=== PATIENT | male | born 1975 | race Caucasian/White ===

== ENCOUNTER 2022-03-27 21:16 | Inpatient (IN) | payer MEDICAID ==
[~2022-03-27] VITALS: Ht 167.6 cm; Wt 81.7 kg
[2022-03-27 21:00] VITALS: BP 158/78
[2022-03-28] MEDS ORDERED: CLONIDINE 0.1MG TABLET PO PRN (00:45)
[2022-03-28 01:00] VITALS: BP 132/79
[2022-03-28] MEDS ORDERED: NALOXONE HCL 0.4 MG/ML 1ML VIAL IV PRN (01:00)
[2022-03-28] MEDS: ACETAMINOPHEN 325MG TABLET PO PRN ×3 (01:07→22:00)
[2022-03-28] MEDS ORDERED: ACETAMINOPHEN 325MG TABLET PO PRN ×2 (02:15)
[2022-03-28] MEDS ORDERED: ONDANSETRON HCL 4MG/2ML INJ IV PRN (02:15)
[2022-03-28 04:00] VITALS: BP 140/68
[2022-03-28] MEDS: SODIUM CHLORIDE 0.9% INJ 3ML FLUSH IVF SCH ×2 (06:00→21:57)
[2022-03-28 08:00] VITALS: BP 124/79
[2022-03-28 12:00] VITALS: BP 126/77
[2022-03-28 16:00] VITALS: BP 133/86
[2022-03-28 20:00] VITALS: BP 107/68
[2022-03-29] VITALS: BP 118/73
[2022-03-29 04:00] VITALS: BP 106/70
[2022-03-29] MEDS: SODIUM CHLORIDE 0.9% INJ 3ML FLUSH IVF SCH ×2 (05:02→22:42)
[2022-03-29] MEDS: ACETAMINOPHEN 325MG TABLET PO PRN ×2 (05:05→22:15)
[2022-03-29 07:57] LABS: BASOPHILS % 0.7 % (0.0-2.0); EOSINOPHILS % 2.9 % (0.0-5.0); HEMATOCRIT. 45.5 % (42.0-52.0); HEMOGLOBIN. 15.7 g/dL (14.0-18.0); LYMPHOCYTES % 40.7 % (20.0-50.0); MEAN CORPUSCULAR HEMOGLOBIN 28.6 pg (28.0-32.0); MEAN CORPUSCULAR VOLUME 82.9 fL (80.0-94.0); MEAN PLATELET VOLUME 6.8 fl (7.4-10.4); MONOCYTES % 8.4 % (2.0-8.0); NEUTROPHILS % 47.3 % (40.0-76.0); PLATELET 361 x1000/uL (130-400); RED BLOOD CELL COUNT 5.49 mill/uL (4.7-6.1); RED CELL DISTRIBUTION WIDTH 13.9 % (11.6-14.6)
[2022-03-29 08:00] VITALS: BP 120/78
[2022-03-29 08:12] LABS: CHLORIDE 104 mEq/L (98-107)
[2022-03-29] MEDS ORDERED: IODIXANOL 320MG/ML 100 ML BOTTLE IV ONE (09:52)
[2022-03-29] MEDS ORDERED: LIDOCAINE HCL/PF 1% 10 MG/ML 5ML VIAL ONE (09:54)
[2022-03-29] MEDS ORDERED: VERAPAMIL HCL 2.5 MG/1 ML 2ML VIAL IV ONE (09:56)
[2022-03-29] MEDS ORDERED: MIDAZOLAM HCL 2 MG/2 ML VIAL ONE (10:20)
[2022-03-29] MEDS ORDERED: FENTANYL CITRATE/PF 50MCG/ML 2ML VIAL ONE (10:20)
[2022-03-29] MEDS ORDERED: DIPHENHYDRAMINE 50MG/ML VIAL ONE (10:21)
[2022-03-29] MEDS ORDERED: HEPARIN 1000 UNITS/ML 10ML ONE (10:34)
[2022-03-29] MEDS ORDERED: ATROPINE SULFATE 1MG/10ML SYR IV PRN (12:00)
[2022-03-29 18:30] VITALS: BP 150/91
[2022-03-29 19:43] LABS: PARTIAL THROMBOPLASTIN TIME 28.6 sec (23.4-31.0); PROTHROMBIN TIME 10.5 sec (9.6-11.0)
[2022-03-29 20:00] VITALS: BP 143/97
[2022-03-29] MEDS ORDERED: HEPARIN 5000 UNITS/ML VIAL IV SCH (20:00)
[2022-03-29] MEDS ORDERED: HEPARIN 25,000 UNITS PREMIX 250 ML IV PRN (20:30)
[2022-03-29] MEDS: ALLOPURINOL 300 MG TABLET PO SCH (20:59)
[2022-03-29] MEDS ORDERED: CHLORHEXIDINE GLUCONATE 4% EXTERNAL USE TOP SCH (21:00)
[2022-03-29] MEDS ORDERED: BISACODYL 10MG SUPP PR PRN (21:00)
[2022-03-29] MEDS: CHLORHEXIDINE GLUCONATE 4% EXTERNAL USE TOP SCH (21:00)
[2022-03-29] MEDS ORDERED: DOCUSATE SODIUM 100MG CAPSULE PO SCH (21:00)
[2022-03-29] MEDS ORDERED: ASCORBIC ACID 500 MG TABLET PO SCH (21:00)
[2022-03-29] MEDS ORDERED: DIPHENHYDRAMINE 25MG CAPSULE PO PRN (21:00)
[2022-03-29 22:00] VITALS: BP 136/82
[2022-03-30] VITALS (55 sets, daily range): BP systolic 83–151; BP diastolic 37–96
[2022-03-30] MEDS ORDERED: HEPARIN 5000 UNITS/ML VIAL IV PRN ×2 (02:00)
[2022-03-30 03:22] LABS: BASOPHILS % 0.7 % (0.0-2.0); EOSINOPHILS % 2.3 % (0.0-5.0); HEMATOCRIT. 45.2 % (42.0-52.0); HEMOGLOBIN. 15.2 g/dL (14.0-18.0); LYMPHOCYTES % 38.1 % (20.0-50.0); MEAN CORPUSCULAR HEMOGLOBIN 28.1 pg (28.0-32.0); MEAN CORPUSCULAR VOLUME 83.5 fL (80.0-94.0); MEAN PLATELET VOLUME 6.9 fl (7.4-10.4); MONOCYTES % 7.7 % (2.0-8.0); NEUTROPHILS % 51.2 % (40.0-76.0); PLATELET 361 x1000/uL (130-400); RED BLOOD CELL COUNT 5.42 mill/uL (4.7-6.1)
[2022-03-30] MEDS ORDERED: DEL NIDO ELECTROLYTE-S(PH 7.4) 1,000 ML IV NR ×2 (04:00)
[2022-03-30] MEDS ORDERED: INSULIN REGULAR (DRIP) 100 UNITS in SODIUM CHLORIDE 0.9% 99 ML IV NR (04:00)
[2022-03-30] MEDS ORDERED: BLOOD SUGAR DIAGNOSTIC STRIP TEST SCH (04:00)
[2022-03-30] MEDS ORDERED: NOREPINEPHRINE 8 MG in DEXT 5% WATER 242 ML IV NR (04:00)
[2022-03-30] MEDS ORDERED: PAPAVERINE HCL 180MG in SODIUM CHLORIDE 0.9% 24ML IV NR ×2 (04:00→09:00)
[2022-03-30] MEDS ORDERED: EPINEPHRINE 5 MG in DEXT 5% WATER 245 ML IV NR (04:00)
[2022-03-30] MEDS ORDERED: DOPAMINE HCL 400 MG in DEXT 5% WATER 240 ML IV NR (04:00)
[2022-03-30] MEDS ORDERED: CEFAZOLIN 2,000 MG in DEXT 5% WATER 100 ML IV NR (04:00)
[2022-03-30 04:22] LABS: CHLORIDE 106 mEq/L (98-107)
[2022-03-30] MEDS: ALLOPURINOL 300 MG TABLET PO SCH (05:37)
[2022-03-30] MEDS: CHLORHEXIDINE GLUCONATE 4% EXTERNAL USE TOP SCH (05:38)
[2022-03-30] MEDS ORDERED: CEFAZOLIN 2,000 MG in DEXT 5% WATER 100 ML IV SCH (06:00)
[2022-03-30] MEDS ORDERED: POLYMYXIN B SULFATE 500000 UNITS/VIAL ONE (06:04)
[2022-03-30] MEDS ORDERED: THROMBIN (BOVINE) 5000 UNITS/VIAL TOP ONE ×2 (06:04→09:20)
[2022-03-30] MEDS ORDERED: SKIN ADHESIVE 0.7 GM EA TOP ONE (06:05)
[2022-03-30] MEDS ORDERED: NICARDIPINE 40MG/200ML PREMIX 200 ML IV ONE (06:18)
[2022-03-30] MEDS ORDERED: HEPARIN 1000 UNITS/ML 10ML ONE ×3 (06:18→09:41)
[2022-03-30] MEDS: SODIUM CHLORIDE 0.9% INJ 3ML FLUSH IVF SCH ×3 (06:39→22:00)
[2022-03-30] MEDS ORDERED: ROCURONIUM BROMIDE 10MG/ML VIAL 5ML IV ONE ×3 (07:27→11:14)
[2022-03-30] MEDS ORDERED: FENTANYL CITRATE/PF 50MCG/ML 2ML VIAL ONE ×2 (07:32→12:06)
[2022-03-30] MEDS ORDERED: PROPOFOL 10MG/ML 100ML 100 ML IV ONE (08:00)
[2022-03-30] MEDS ORDERED: GLYCOPYRROLATE 0.2 MG/ML 2ML VIAL ONE ×2 (08:51→11:55)
[2022-03-30] MEDS ORDERED: METOPROLOL TARTRATE 5MG/5ML VIAL IV ONE (08:52)
[2022-03-30] MEDS ORDERED: DEXAMETHASONE 4MG/ML 1ML VIAL ONE (08:52)
[2022-03-30] MEDS ORDERED: FUROSEMIDE 100MG/10ML VIAL ONE (08:52)
[2022-03-30] MEDS: ASPIRIN 81MG TABLET PO SCH (09:00)
[2022-03-30] MEDS ORDERED: CALCIUM CHLORIDE 1GM/10ML SYR IV ONE (09:16)
[2022-03-30] MEDS ORDERED: MAGNESIUM 1 G PREMIX 100 ML IV PRN ×2 (09:30→12:00)
[2022-03-30] MEDS ORDERED: MAGNESIUM 2 G PREMIX 50 ML IV PRN ×2 (09:30→12:00)
[2022-03-30] MEDS ORDERED: KCL 10MEQ/50ML PREMIX 150 ML IV PRN (09:30)
[2022-03-30] MEDS ORDERED: MAGNESIUM SULFATE 3 GM in DEXT 5% WATER 100 ML IV PRN ×2 (09:30→12:00)
[2022-03-30] MEDS ORDERED: KCL 10MEQ/50ML PREMIX 200 ML IV PRN (09:30)
[2022-03-30] MEDS ORDERED: SODIUM BICARBONATE 8.4% 1 MEQ/ML 50ML SYR IV ONE (09:36)
[2022-03-30] MEDS ORDERED: AMINOCAPROIC ACID 250 MG/ML 20ML VIAL ONE (10:48)
[2022-03-30] MEDS ORDERED: MILRINONE 20MG-DEXT 5% PREMIX 100 ML IV ONE (10:49)
[2022-03-30] MEDS ORDERED: KETOROLAC 30MG/ML VIAL ONE (11:18)
[2022-03-30] MEDS ORDERED: AMIODARONE HCL 50MG/ML 3ML VIAL IV ONE (11:18)
[2022-03-30] MEDS ORDERED: AMIODARONE HCL 900 MG in DEXT 5% WATER 500 ML IV PRN (11:30)
[2022-03-30] MEDS ORDERED: SEVOFLURANE 250 ML LIQUID INH ONE (11:31)
[2022-03-30] MEDS ORDERED: NEOSTIGMINE METHYLSULFATE 1MG/ML 10 ML VIAL ONE (11:34)
[2022-03-30] MEDS ORDERED: DOPAMINE HCL 400 MG in DEXT 5% WATER 240 ML IV SCH (12:00)
[2022-03-30] MEDS ORDERED: ACETAMINOPHEN 325MG TABLET PO PRN (12:00)
[2022-03-30] MEDS ORDERED: CALCIUM CHLORIDE 3,000 MG in DEXT 5% WATER 250 ML IV PRN (12:00)
[2022-03-30] MEDS ORDERED: ALBUMIN HUMAN 12.5G/250ML (5%) IV PRN (12:00)
[2022-03-30] MEDS ORDERED: SODIUM CHLORIDE 0.9% 500 ML IV PRN (12:00)
[2022-03-30] MEDS ORDERED: ALBUMIN HUMAN 25GM/100ML (25%) IV PRN (12:00)
[2022-03-30] MEDS ORDERED: ALBUTEROL 6.7GM HFA INHALER ONE (12:11)
[2022-03-30 12:29] LABS: BG CARBOXYHEMOGLOBIN 0.3 % (0.5-1.5); BG DEOXYHEMOGLOBIN 6.4 % (0.0-5.0); BG FRACTION INSPIRED OXYGEN 100; BG HCO3 ACT 19.5 mmol/L (22.0-26.0); BG METHEMOGLOBIN 0.2 % (0.0-1.5); BG OXYGEN SATURATION 93.6 % (92.0-98.5); BG OXYHEMOGLOBIN 93.1 % (94.0-97.0); BG PCO2 48.2 mmHg (35.0-45.0); BG PH 7.224 (7.350-7.450); BG PO2 79.4 mmHg (75.0-100.0); BG SAMPLE SITE ALINE; BG TOTAL HEMOGLOBIN 11.5 g/dL (12.0-18.0); BG VENT MODE MASK - NRB
[2022-03-30] MEDS: MAGNESIUM HYDROXIDE 400MG/5ML 30ML UDC PO SCH ×3 (12:30→20:21)
[2022-03-30 12:33] LABS: BASOPHILS % 0.1 % (0.0-2.0); EOSINOPHILS % 0.1 % (0.0-5.0); HEMATOCRIT. 32.1 % (42.0-52.0); HEMOGLOBIN. 10.6 g/dL (14.0-18.0); LYMPHOCYTES % 16.6 % (20.0-50.0); MEAN CORPUSCULAR VOLUME 84.6 fL (80.0-94.0); MEAN PLATELET VOLUME 6.6 fl (7.4-10.4); MONOCYTES % 5.4 % (2.0-8.0); NEUTROPHILS % 77.8 % (40.0-76.0); PLATELET 293 x1000/uL (130-400); RED CELL DISTRIBUTION WIDTH 13.9 % (11.6-14.6)
[2022-03-30 12:45] LABS: CHLORIDE 105 mEq/L (98-107)
[2022-03-30] MEDS ORDERED: SODIUM BICARBONATE 8.4% 1 MEQ/ML 50ML SYR IV NR (12:45)
[2022-03-30] MEDS: MORPHINE SULFATE 2 MG/ML CPJ (NOT FOR IM USE) IV PRN ×2 (12:49→16:58)
[2022-03-30] MEDS ORDERED: FAMOTIDINE 20MG/2ML VIAL IV SCH (13:00)
[2022-03-30] MEDS: INSULIN REGULAR 100U/100ML PMX 100 ML IV SCH ×2 (13:04→21:31)
[2022-03-30] MEDS: BLOOD SUGAR DIAGNOSTIC STRIP TEST SCH ×11 (13:04→23:00)
[2022-03-30] MEDS: CEFAZOLIN 1000MG PREMIX 50 ML IV SCH ×2 (13:36→21:11)
[2022-03-30] MEDS ORDERED: DEXT 5%/0.45% NACL 1000ML 1,000 ML IV SCH (13:45)
[2022-03-30] MEDS: KCL 10MEQ/50ML PREMIX 100 ML IV PRN ×2 (14:11→15:11)
[2022-03-30] MEDS ORDERED: ALBUMIN HUMAN 25GM/100ML (25%) IV NR (15:41)
[2022-03-30] MEDS: BACITRACIN 15GM TUBE TOP SCH (16:52)
[2022-03-30] MEDS: DOCUSATE SODIUM 100MG CAPSULE PO SCH (16:57)
[2022-03-30 17:50] LABS: HEMATOCRIT. 29.9 % (42.0-52.0); HEMOGLOBIN. 10.1 g/dL (14.0-18.0); MEAN CORPUSCULAR HEMOGLOBIN 28.3 pg (28.0-32.0); MEAN CORPUSCULAR VOLUME 83.7 fL (80.0-94.0); PLATELET 259 x1000/uL (130-400); RED BLOOD CELL COUNT 3.57 mill/uL (4.7-6.1); RED CELL DISTRIBUTION WIDTH 13.9 % (11.6-14.6)
[2022-03-30 18:04] LABS: CHLORIDE 110 mEq/L (98-107)
[2022-03-30 18:07] LABS: PHOSPHORUS 3.8 mg/dL (2.5-4.9)
[2022-03-30] MEDS: ACETAMINOPHEN 325MG TABLET PO PRN (20:53)
[2022-03-30] MEDS: ONDANSETRON HCL 4MG/2ML INJ IV PRN (21:10)
[2022-03-30] MEDS: KETOROLAC 15MG/ML VIAL IV PRN (21:35)
[2022-03-30] MEDS: IPRATROPIUM/ALBUTEROL 0.5-3(2.5)MG/3ML NEB HHN SCH (22:01)
[2022-03-30 22:25] LABS: PLATELET ESTIMATE NORMAL
[2022-03-31] VITALS (71 sets, daily range): BP systolic 1–166; BP diastolic 1–88
[2022-03-31] MEDS: IPRATROPIUM/ALBUTEROL 0.5-3(2.5)MG/3ML NEB HHN SCH ×6 (00:32→20:46)
[2022-03-31] MEDS: MAGNESIUM HYDROXIDE 400MG/5ML 30ML UDC PO SCH ×4 (00:33→13:36)
[2022-03-31] MEDS: BLOOD SUGAR DIAGNOSTIC STRIP TEST SCH ×16 (01:00→21:02)
[2022-03-31 01:07] LABS: HEMATOCRIT. 29.5 % (42.0-52.0); HEMOGLOBIN. 9.9 g/dL (14.0-18.0); MEAN CORPUSCULAR HEMOGLOBIN 28.3 pg (28.0-32.0); MEAN CORPUSCULAR VOLUME 83.9 fL (80.0-94.0); PLATELET 238 x1000/uL (130-400); RED BLOOD CELL COUNT 3.51 mill/uL (4.7-6.1); RED CELL DISTRIBUTION WIDTH 13.9 % (11.6-14.6)
[2022-03-31 01:26] LABS: PHOSPHORUS 5.9 mg/dL (2.5-4.9)
[2022-03-31 02:11] LABS: PLATELET ESTIMATE NORMAL
[2022-03-31] MEDS: KETOROLAC 15MG/ML VIAL IV PRN (04:20)
[2022-03-31 05:31] LABS: BG BASE EXCESS -1.5 mmol/L (-2.0-2.0); BG CARBOXYHEMOGLOBIN 0.3 % (0.5-1.5); BG DEOXYHEMOGLOBIN 3.4 % (0.0-5.0); BG HCO3 ACT 23.7 mmol/L (22.0-26.0); BG METHEMOGLOBIN 0.1 % (0.0-1.5); BG OXYGEN SATURATION 96.6 % (92.0-98.5); BG OXYHEMOGLOBIN 96.2 % (94.0-97.0); BG PCO2 41.9 mmHg (35.0-45.0); BG PH 7.371 (7.350-7.450); BG PO2 94.2 mmHg (75.0-100.0); BG SAMPLE SITE ALINE; BG TOTAL HEMOGLOBIN 10.4 g/dL (12.0-18.0)
[2022-03-31] MEDS: CEFAZOLIN 1000MG PREMIX 50 ML IV SCH ×2 (05:32→13:36)
[2022-03-31 05:34] LABS: BASOPHILS % 0.1 % (0.0-2.0); HEMATOCRIT. 29.2 % (42.0-52.0); HEMOGLOBIN. 9.9 g/dL (14.0-18.0); LYMPHOCYTES % 8.6 % (20.0-50.0); MEAN CORPUSCULAR HEMOGLOBIN 28.6 pg (28.0-32.0); MEAN CORPUSCULAR VOLUME 84.2 fL (80.0-94.0); MEAN PLATELET VOLUME 6.8 fl (7.4-10.4); MONOCYTES % 6.4 % (2.0-8.0); NEUTROPHILS % 84.9 % (40.0-76.0); PLATELET 226 x1000/uL (130-400); RED BLOOD CELL COUNT 3.47 mill/uL (4.7-6.1); RED CELL DISTRIBUTION WIDTH 13.8 % (11.6-14.6)
[2022-03-31] MEDS: SODIUM CHLORIDE 0.9% INJ 3ML FLUSH IVF SCH (06:36)
[2022-03-31] MEDS: MORPHINE SULFATE 2 MG/ML CPJ (NOT FOR IM USE) IV PRN ×3 (08:10→21:27)
[2022-03-31] MEDS ORDERED: FUROSEMIDE 40MG/4ML VIAL IVP NR (08:45)
[2022-03-31] MEDS: DOCUSATE SODIUM 100MG CAPSULE PO SCH ×2 (08:50→17:56)
[2022-03-31] MEDS: ONDANSETRON HCL 4MG/2ML INJ IV PRN (08:50)
[2022-03-31] MEDS: ASPIRIN 81MG TABLET PO SCH (08:50)
[2022-03-31] MEDS: FAMOTIDINE 20MG/2ML VIAL IV SCH (08:50)
[2022-03-31] MEDS: BACITRACIN 15GM TUBE TOP SCH ×2 (08:51→17:56)
[2022-03-31] MEDS: INSULIN LISPRO 100 UNITS/ML SUBCUT SCH ×3 (13:20→23:03)
[2022-03-31] MEDS ORDERED: FUROSEMIDE 100MG/10ML VIAL IVP NR (19:30)
[2022-03-31] MEDS ORDERED: FUROSEMIDE 40MG/4 ML UDC PO ONE (19:30)
[2022-03-31] MEDS: FUROSEMIDE 100 MG in SODIUM CHLORIDE 0.9% 90 ML IV SCH (20:59)
[2022-03-31] MEDS: DOBUTAMINE 250MG PREMIX 250 ML IV PRN (21:01)
[2022-04-01] VITALS (48 sets, daily range): BP systolic 90–149; BP diastolic 28–110
[2022-04-01] MEDS: IPRATROPIUM/ALBUTEROL 0.5-3(2.5)MG/3ML NEB HHN SCH ×5 (00:35→20:55)
[2022-04-01] MEDS: ALBUMIN HUMAN 25GM/100ML (25%) IV SCH ×3 (01:47→07:46)
[2022-04-01] MEDS: MORPHINE SULFATE 2 MG/ML CPJ (NOT FOR IM USE) IV PRN ×4 (04:13→17:58)
[2022-04-01 05:40] LABS: BASOPHILS % 0.1 % (0.0-2.0); HEMATOCRIT. 29.6 % (42.0-52.0); HEMOGLOBIN. 9.7 g/dL (14.0-18.0); LYMPHOCYTES % 11.3 % (20.0-50.0); MEAN CORPUSCULAR HEMOGLOBIN 28.3 pg (28.0-32.0); MEAN CORPUSCULAR VOLUME 86.6 fL (80.0-94.0); MEAN PLATELET VOLUME 7.7 fl (7.4-10.4); MONOCYTES % 5.6 % (2.0-8.0); PLATELET 197 x1000/uL (130-400); RED BLOOD CELL COUNT 3.42 mill/uL (4.7-6.1); RED CELL DISTRIBUTION WIDTH 14.4 % (11.6-14.6)
[2022-04-01] MEDS: DOBUTAMINE 250MG PREMIX 250 ML IV PRN (07:21)
[2022-04-01] MEDS: FUROSEMIDE 100 MG in SODIUM CHLORIDE 0.9% 90 ML IV SCH ×2 (07:22→17:57)
[2022-04-01] MEDS: BLOOD SUGAR DIAGNOSTIC STRIP TEST SCH ×4 (07:52→21:00)
[2022-04-01] MEDS: INSULIN LISPRO 100 UNITS/ML SUBCUT SCH ×4 (08:01→21:00)
[2022-04-01 08:55] LABS: BG BASE EXCESS 0.4 mmol/L (-2.0-2.0); BG CARBOXYHEMOGLOBIN 0.2 % (0.5-1.5); BG DEOXYHEMOGLOBIN 3.9 % (0.0-5.0); BG FRACTION INSPIRED OXYGEN 100; BG HCO3 ACT 25.4 mmol/L (22.0-26.0); BG METHEMOGLOBIN 0.6 % (0.0-1.5); BG OXYGEN SATURATION 96.1 % (92.0-98.5); BG OXYHEMOGLOBIN 95.3 % (94.0-97.0); BG PCO2 42.8 mmHg (35.0-45.0); BG PH 7.392 (7.350-7.450); BG PO2 94.1 mmHg (75.0-100.0); BG SAMPLE SITE LEFT RADIAL; BG TOTAL HEMOGLOBIN 10.1 g/dL (12.0-18.0); BG VENT MODE HIGH FLOW
[2022-04-01] MEDS: DOCUSATE SODIUM 100MG CAPSULE PO SCH ×2 (09:00→16:28)
[2022-04-01] MEDS: FAMOTIDINE 20MG/2ML VIAL IV SCH (09:14)
[2022-04-01] MEDS: BACITRACIN 15GM TUBE TOP SCH ×2 (09:14→17:45)
[2022-04-01] MEDS: ASPIRIN 81MG TABLET PO SCH (09:14)
[2022-04-01 09:33] LABS: PHOSPHORUS 4.3 mg/dL (2.5-4.9)
[2022-04-01] MEDS: CLOPIDOGREL 75MG TABLET PO SCH (09:43)
[2022-04-01] MEDS: AMIODARONE HCL 200 MG TABLET PO SCH ×2 (09:44→17:45)
[2022-04-01] MEDS ORDERED: ALBUMIN HUMAN 25GM/100ML (25%) IV ONE ×2 (11:00→14:00)
[2022-04-01] MEDS: DOCUSATE SODIUM 250MG CAPSULE PO SCH ×2 (17:00→17:38)
[2022-04-01] MEDS: DOPAMINE 800MG PREMIX (DOUBLE) 250 ML IV SCH (18:21)
[2022-04-01] MEDS ORDERED: ALBUMIN HUMAN 25GM/100ML (25%) IV NR (18:30)
[2022-04-01] MEDS: TEMAZEPAM 15MG CAPSULE PO SCH (22:34)
[2022-04-02] VITALS (46 sets, daily range): BP systolic 64–141; BP diastolic 47–89
[2022-04-02 00:01] LABS: CLARITY URINE CLOUDY (CLEAR); COLOR URINE DARK YELLOW (YELLOW); KETONES URINE TRACE (NEGATIVE); LEUKOCYTE ESTERASE URINE TRACE (NEGATIVE); NITRITE URINE NEGATIVE (NEGATIVE); OCCULT BLOOD URINE 3+ (NEGATIVE); PROTEIN URINE 2+ (NEGATIVE); SPECIFIC GRAVITY URINE 1.018 (1.005-1.030)
[2022-04-02] MEDS: IPRATROPIUM/ALBUTEROL 0.5-3(2.5)MG/3ML NEB HHN SCH ×6 (00:34→20:34)
[2022-04-02 05:30] LABS: BASOPHILS % 0.1 % (0.0-2.0); EOSINOPHILS % 0.1 % (0.0-5.0); HEMATOCRIT. 25.4 % (42.0-52.0); HEMOGLOBIN. 8.5 g/dL (14.0-18.0); LYMPHOCYTES % 14.5 % (20.0-50.0); MEAN CORPUSCULAR HEMOGLOBIN 28.8 pg (28.0-32.0); MEAN PLATELET VOLUME 8.1 fl (7.4-10.4); NEUTROPHILS % 81.3 % (40.0-76.0); PLATELET 165 x1000/uL (130-400); RED BLOOD CELL COUNT 2.96 mill/uL (4.7-6.1); RED CELL DISTRIBUTION WIDTH 14.2 % (11.6-14.6)
[2022-04-02] MEDS: BLOOD SUGAR DIAGNOSTIC STRIP TEST SCH ×4 (08:14→21:00)
[2022-04-02 09:15] LABS: BG BASE EXCESS 1.9 mmol/L (-2.0-2.0); BG CARBOXYHEMOGLOBIN 0.3 % (0.5-1.5); BG DEOXYHEMOGLOBIN 1.7 % (0.0-5.0); BG FRACTION INSPIRED OXYGEN 100; BG HCO3 ACT 26.5 mmol/L (22.0-26.0); BG METHEMOGLOBIN 0.2 % (0.0-1.5); BG OXYGEN SATURATION 98.3 % (92.0-98.5); BG OXYHEMOGLOBIN 97.8 % (94.0-97.0); BG PCO2 41.2 mmHg (35.0-45.0); BG PH 7.426 (7.350-7.450); BG PO2 131.1 mmHg (75.0-100.0); BG SAMPLE SITE RIGHT RADIAL; BG TOTAL HEMOGLOBIN 9.5 g/dL (12.0-18.0); BG TOTAL RESPIRATORY RATE 38 b/min; BG VENT MODE MASK - BIPAP
[2022-04-02] MEDS: DOCUSATE SODIUM 250MG CAPSULE PO SCH ×2 (09:39→17:00)
[2022-04-02] MEDS: AMIODARONE HCL 200 MG TABLET PO SCH ×2 (09:39→17:55)
[2022-04-02] MEDS: CLOPIDOGREL 75MG TABLET PO SCH (09:40)
[2022-04-02] MEDS: FAMOTIDINE 20MG/2ML VIAL IV SCH (09:40)
[2022-04-02] MEDS: ACETAMINOPHEN 325MG TABLET PO PRN (09:40)
[2022-04-02] MEDS: ASPIRIN 81MG TABLET PO SCH (09:40)
[2022-04-02] MEDS: INSULIN LISPRO 100 UNITS/ML SUBCUT SCH ×4 (09:41→21:00)
[2022-04-02] MEDS: BACITRACIN 15GM TUBE TOP SCH ×2 (09:42→17:56)
[2022-04-02] MEDS: ALBUMIN HUMAN 25GM/100ML (25%) IV SCH ×3 (10:43→15:22)
[2022-04-02] MEDS: FUROSEMIDE 100 MG in SODIUM CHLORIDE 0.9% 100 ML IV SCH (12:36)
[2022-04-02] MEDS ORDERED: METOLAZONE 10MG TABLET PO NR (13:00)
[2022-04-02] MEDS: DOPAMINE 800MG PREMIX (DOUBLE) 250 ML IV SCH (19:19)
[2022-04-02] MEDS: ACETYLCYSTEINE 200MG/ML 20% VIAL 4ML PO SCH (20:35)
[2022-04-03] VITALS (50 sets, daily range): BP systolic 95–131; BP diastolic 52–103
[2022-04-03] MEDS: TEMAZEPAM 15MG CAPSULE PO SCH ×2 (00:05→22:06)
[2022-04-03] MEDS: FUROSEMIDE 100 MG in SODIUM CHLORIDE 0.9% 100 ML IV SCH ×3 (00:10→22:06)
[2022-04-03] MEDS: IPRATROPIUM/ALBUTEROL 0.5-3(2.5)MG/3ML NEB HHN SCH ×6 (00:24→20:32)
[2022-04-03] MEDS: INSULIN LISPRO 100 UNITS/ML SUBCUT SCH ×4 (08:20→21:00)
[2022-04-03 08:28] LABS: BASOPHILS % 0.1 % (0.0-2.0); EOSINOPHILS % 0.8 % (0.0-5.0); HEMATOCRIT. 26.4 % (42.0-52.0); HEMOGLOBIN. 8.8 g/dL (14.0-18.0); LYMPHOCYTES % 12.6 % (20.0-50.0); MEAN CORPUSCULAR HEMOGLOBIN 28.4 pg (28.0-32.0); MEAN PLATELET VOLUME 8.2 fl (7.4-10.4); MONOCYTES % 5.2 % (2.0-8.0); NEUTROPHILS % 81.3 % (40.0-76.0); PLATELET 182 x1000/uL (130-400); RED BLOOD CELL COUNT 3.11 mill/uL (4.7-6.1); RED CELL DISTRIBUTION WIDTH 13.8 % (11.6-14.6)
[2022-04-03] MEDS: BLOOD SUGAR DIAGNOSTIC STRIP TEST SCH ×4 (08:34→21:00)
[2022-04-03] MEDS: DOCUSATE SODIUM 250MG CAPSULE PO SCH ×2 (08:42→16:16)
[2022-04-03] MEDS: AMIODARONE HCL 200 MG TABLET PO SCH ×2 (08:42→16:16)
[2022-04-03] MEDS: METOLAZONE 10MG TABLET PO SCH (08:42)
[2022-04-03] MEDS: CLOPIDOGREL 75MG TABLET PO SCH (08:42)
[2022-04-03] MEDS: FAMOTIDINE 20MG/2ML VIAL IV SCH (08:42)
[2022-04-03] MEDS: ASPIRIN 81MG TABLET PO SCH (08:42)
[2022-04-03] MEDS: KCL 10MEQ/50ML PREMIX 100 ML IV PRN (08:43)
[2022-04-03] MEDS: BACITRACIN 15GM TUBE TOP SCH ×2 (08:44→16:16)
[2022-04-04] VITALS (44 sets, daily range): BP systolic 104–137; BP diastolic 65–91
[2022-04-04] MEDS: IPRATROPIUM/ALBUTEROL 0.5-3(2.5)MG/3ML NEB HHN SCH ×6 (00:03→21:18)
[2022-04-04] MEDS: DOPAMINE 800MG PREMIX (DOUBLE) 250 ML IV SCH (02:16)
[2022-04-04 05:51] LABS: BASOPHILS % 0.2 % (0.0-2.0); EOSINOPHILS % 3.2 % (0.0-5.0); HEMATOCRIT. 29.2 % (42.0-52.0); HEMOGLOBIN. 9.9 g/dL (14.0-18.0); LYMPHOCYTES % 15.6 % (20.0-50.0); MEAN CORPUSCULAR HEMOGLOBIN 28.5 pg (28.0-32.0); MEAN CORPUSCULAR VOLUME 84.3 fL (80.0-94.0); MEAN PLATELET VOLUME 7.9 fl (7.4-10.4); PLATELET 271 x1000/uL (130-400); RED BLOOD CELL COUNT 3.46 mill/uL (4.7-6.1); RED CELL DISTRIBUTION WIDTH 14.1 % (11.6-14.6)
[2022-04-04] MEDS: BLOOD SUGAR DIAGNOSTIC STRIP TEST SCH ×4 (07:50→21:00)
[2022-04-04] MEDS: INSULIN LISPRO 100 UNITS/ML SUBCUT SCH ×4 (08:20→21:00)
[2022-04-04 08:21] LABS: BG BASE EXCESS 12.6 mmol/L (-2.0-2.0); BG CARBOXYHEMOGLOBIN 0.2 % (0.5-1.5); BG DEOXYHEMOGLOBIN 2.6 % (0.0-5.0); BG FRACTION INSPIRED OXYGEN 45; BG HCO3 ACT 37.2 mmol/L (22.0-26.0); BG METHEMOGLOBIN 0.3 % (0.0-1.5); BG OXYGEN SATURATION 97.4 % (92.0-98.5); BG OXYHEMOGLOBIN 96.9 % (94.0-97.0); BG PCO2 48.4 mmHg (35.0-45.0); BG PH 7.504 (7.350-7.450); BG PO2 92.9 mmHg (75.0-100.0); BG SAMPLE SITE RIGHT RADIAL; BG TOTAL HEMOGLOBIN 10.6 g/dL (12.0-18.0); BG VENT MODE HIGH FLOW
[2022-04-04] MEDS: ASPIRIN 81MG TABLET PO SCH (09:01)
[2022-04-04] MEDS: BACITRACIN 15GM TUBE TOP SCH ×2 (09:01→17:38)
[2022-04-04] MEDS: METOLAZONE 10MG TABLET PO SCH (09:01)
[2022-04-04] MEDS: AMIODARONE HCL 200 MG TABLET PO SCH ×2 (09:01→17:36)
[2022-04-04] MEDS: FAMOTIDINE 20MG/2ML VIAL IV SCH (09:01)
[2022-04-04] MEDS: DOCUSATE SODIUM 250MG CAPSULE PO SCH ×2 (09:01→17:00)
[2022-04-04] MEDS: CLOPIDOGREL 75MG TABLET PO SCH (09:01)
[2022-04-04] MEDS: POTASSIUM CHLORIDE 20MEQ/PACKET PO SCH ×2 (09:41→17:37)
[2022-04-04] MEDS: FUROSEMIDE 100 MG in SODIUM CHLORIDE 0.9% 100 ML IV SCH ×2 (15:01→20:39)
[2022-04-04] MEDS: TEMAZEPAM 15MG CAPSULE PO SCH (20:56)
[2022-04-05] VITALS (36 sets, daily range): BP systolic 89–145; BP diastolic 60–84
[2022-04-05] MEDS: IPRATROPIUM/ALBUTEROL 0.5-3(2.5)MG/3ML NEB HHN SCH ×6 (02:09→20:09)
[2022-04-05] MEDS ORDERED: DOPAMINE 400 MG/250 ML IV ONE (06:14)
[2022-04-05 06:29] LABS: HEMATOCRIT. 32.9 % (42.0-52.0); HEMOGLOBIN. 11.1 g/dL (14.0-18.0); MEAN CORPUSCULAR HEMOGLOBIN 28.7 pg (28.0-32.0); MEAN CORPUSCULAR VOLUME 84.5 fL (80.0-94.0); MEAN PLATELET VOLUME 7.7 fl (7.4-10.4); PLATELET 349 x1000/uL (130-400); RED BLOOD CELL COUNT 3.89 mill/uL (4.7-6.1); RED CELL DISTRIBUTION WIDTH 14.2 % (11.6-14.6)
[2022-04-05 07:28] LABS: PHOSPHORUS 6.1 mg/dL (2.5-4.9)
[2022-04-05] MEDS: FUROSEMIDE 100 MG in SODIUM CHLORIDE 0.9% 100 ML IV SCH ×2 (07:42→18:04)
[2022-04-05] MEDS: DOPAMINE 800MG PREMIX (DOUBLE) 250 ML IV SCH (07:44)
[2022-04-05] MEDS: INSULIN LISPRO 100 UNITS/ML SUBCUT SCH ×4 (08:06→21:00)
[2022-04-05] MEDS: BLOOD SUGAR DIAGNOSTIC STRIP TEST SCH ×3 (08:06→21:52)
[2022-04-05] MEDS: FAMOTIDINE 20MG/2ML VIAL IV SCH (08:40)
[2022-04-05] MEDS: POTASSIUM CHLORIDE 20MEQ/PACKET PO SCH ×2 (08:40→18:03)
[2022-04-05] MEDS: CLOPIDOGREL 75MG TABLET PO SCH (08:40)
[2022-04-05] MEDS: ASPIRIN 81MG TABLET PO SCH (08:40)
[2022-04-05] MEDS: METOLAZONE 10MG TABLET PO SCH (08:40)
[2022-04-05] MEDS: AMIODARONE HCL 200 MG TABLET PO SCH ×2 (08:40→18:03)
[2022-04-05] MEDS: DOCUSATE SODIUM 250MG CAPSULE PO SCH ×2 (08:40→18:03)
[2022-04-05] MEDS: BACITRACIN 15GM TUBE TOP SCH ×2 (08:41→17:00)
[2022-04-05 09:12] LABS: PLATELET ESTIMATE NORMAL
[2022-04-05] MEDS: ACETAMINOPHEN 325MG TABLET PO PRN (14:36)
[2022-04-05] MEDS: ONDANSETRON HCL 4MG/2ML INJ IV PRN (20:18)
[2022-04-05] MEDS: TEMAZEPAM 15MG CAPSULE PO SCH (21:58)
[2022-04-06] VITALS (12 sets, daily range): BP systolic 107–137; BP diastolic 54–91
[2022-04-06] MEDS: IPRATROPIUM/ALBUTEROL 0.5-3(2.5)MG/3ML NEB HHN SCH ×6 (00:02→20:14)
[2022-04-06] MEDS: ACETAMINOPHEN 325MG TABLET PO PRN (00:24)
[2022-04-06 06:00] LABS: HEMOGLOBIN. 11.7 g/dL (14.0-18.0); MEAN CORPUSCULAR VOLUME 83.7 fL (80.0-94.0); MEAN PLATELET VOLUME 7.5 fl (7.4-10.4); PLATELET 386 x1000/uL (130-400); RED BLOOD CELL COUNT 4.18 mill/uL (4.7-6.1); RED CELL DISTRIBUTION WIDTH 14.4 % (11.6-14.6)
[2022-04-06] MEDS: FUROSEMIDE 100 MG in SODIUM CHLORIDE 0.9% 100 ML IV SCH (06:26)
[2022-04-06] MEDS: BLOOD SUGAR DIAGNOSTIC STRIP TEST SCH ×4 (06:50→21:34)
[2022-04-06] MEDS: INSULIN LISPRO 100 UNITS/ML SUBCUT SCH ×4 (07:20→21:34)
[2022-04-06] MEDS: AMIODARONE HCL 200 MG TABLET PO SCH ×2 (08:02→17:42)
[2022-04-06] MEDS: METOLAZONE 10MG TABLET PO SCH (08:02)
[2022-04-06] MEDS: CLOPIDOGREL 75MG TABLET PO SCH (08:02)
[2022-04-06] MEDS: ASPIRIN 81MG TABLET PO SCH (08:02)
[2022-04-06] MEDS: BACITRACIN 15GM TUBE TOP SCH ×2 (08:02→17:38)
[2022-04-06] MEDS: POTASSIUM CHLORIDE 20MEQ/PACKET PO SCH (08:02)
[2022-04-06] MEDS: DOCUSATE SODIUM 250MG CAPSULE PO SCH ×2 (08:02→17:41)
[2022-04-06] MEDS: FAMOTIDINE 20MG/2ML VIAL IV SCH (08:02)
[2022-04-06] MEDS: FUROSEMIDE 40MG/4ML VIAL IVP SCH ×2 (11:30→17:41)
[2022-04-06] MEDS: POTASSIUM CHLORIDE 20MEQ TABLET SR PO SCH ×2 (11:30→17:41)
[2022-04-06 11:52] LABS: ATYPICAL LYMPHOCYTES 1; PLATELET ESTIMATE NORMAL
[2022-04-06] MEDS ORDERED: FUROSEMIDE 100 MG in SODIUM CHLORIDE 0.9% 100 ML IV SCH (16:00)
[2022-04-06] MEDS: ONDANSETRON HCL 4MG/2ML INJ IV PRN (17:48)
[2022-04-06] MEDS: ACETYLCYSTEINE 200MG/ML 20% VIAL 4ML PO SCH (20:00)
[2022-04-06] MEDS: TEMAZEPAM 15MG CAPSULE PO SCH (21:33)
[2022-04-07] VITALS (12 sets, daily range): BP systolic 97–136; BP diastolic 33–84
[2022-04-07] MEDS: IPRATROPIUM/ALBUTEROL 0.5-3(2.5)MG/3ML NEB HHN SCH ×6 (00:20→20:47)
[2022-04-07 06:12] LABS: HEMATOCRIT. 36.3 % (42.0-52.0); HEMOGLOBIN. 12.2 g/dL (14.0-18.0); MEAN CORPUSCULAR HEMOGLOBIN 28.1 pg (28.0-32.0); MEAN CORPUSCULAR VOLUME 83.6 fL (80.0-94.0); MEAN PLATELET VOLUME 7.6 fl (7.4-10.4); PLATELET 407 x1000/uL (130-400); RED BLOOD CELL COUNT 4.35 mill/uL (4.7-6.1)
[2022-04-07 06:39] LABS: PHOSPHORUS 5.9 mg/dL (2.5-4.9)
[2022-04-07] MEDS: INSULIN LISPRO 100 UNITS/ML SUBCUT SCH (07:20)
[2022-04-07] MEDS: BLOOD SUGAR DIAGNOSTIC STRIP TEST SCH (07:21)
[2022-04-07] MEDS: FUROSEMIDE 40MG/4ML VIAL IVP SCH (07:26)
[2022-04-07] MEDS: POTASSIUM CHLORIDE 20MEQ TABLET SR PO SCH (08:17)
[2022-04-07] MEDS: FAMOTIDINE 20MG/2ML VIAL IV SCH (08:17)
[2022-04-07] MEDS: AMIODARONE HCL 200 MG TABLET PO SCH ×2 (08:17→17:52)
[2022-04-07] MEDS: CLOPIDOGREL 75MG TABLET PO SCH (08:17)
[2022-04-07] MEDS: METOLAZONE 10MG TABLET PO SCH (08:17)
[2022-04-07] MEDS: ASPIRIN 81MG TABLET PO SCH (08:17)
[2022-04-07] MEDS: DOCUSATE SODIUM 250MG CAPSULE PO SCH ×2 (08:18→17:53)
[2022-04-07] MEDS: BACITRACIN 15GM TUBE TOP SCH ×2 (08:18→17:53)
[2022-04-07] MEDS ORDERED: KCL 20MEQ/100ML PREMIX 100 ML IV PRN (08:30)
[2022-04-07 12:32] LABS: PLATELET ESTIMATE SLIGHTLY INCREASED
[2022-04-08] VITALS (12 sets, daily range): BP systolic 105–147; BP diastolic 60–80
[2022-04-08] MEDS: ACETAMINOPHEN 325MG TABLET PO PRN (00:22)
[2022-04-08] MEDS: IPRATROPIUM/ALBUTEROL 0.5-3(2.5)MG/3ML NEB HHN SCH ×4 (00:38→12:00)
[2022-04-08 06:44] LABS: BASOPHILS % 0.3 % (0.0-2.0); EOSINOPHILS % 5.8 % (0.0-5.0); HEMATOCRIT. 36.4 % (42.0-52.0); HEMOGLOBIN. 12.2 g/dL (14.0-18.0); MEAN CORPUSCULAR HEMOGLOBIN 28.1 pg (28.0-32.0); MEAN CORPUSCULAR VOLUME 83.8 fL (80.0-94.0); MEAN PLATELET VOLUME 7.7 fl (7.4-10.4); MONOCYTES % 12.2 % (2.0-8.0); NEUTROPHILS % 69.7 % (40.0-76.0); PLATELET 441 x1000/uL (130-400); RED BLOOD CELL COUNT 4.35 mill/uL (4.7-6.1); RED CELL DISTRIBUTION WIDTH 14.1 % (11.6-14.6)
[2022-04-08] MEDS: ASPIRIN 81MG TABLET PO SCH (08:32)
[2022-04-08] MEDS: AMIODARONE HCL 200 MG TABLET PO SCH ×2 (08:32→17:26)
[2022-04-08] MEDS: CLOPIDOGREL 75MG TABLET PO SCH (08:32)
[2022-04-08] MEDS: FAMOTIDINE 20MG/2ML VIAL IV SCH (08:32)
[2022-04-08] MEDS: BACITRACIN 15GM TUBE TOP SCH ×2 (08:32→17:07)
[2022-04-08] MEDS: DOCUSATE SODIUM 250MG CAPSULE PO SCH ×2 (08:32→17:07)
[2022-04-08 08:45] LABS: PHOSPHORUS 6.1 mg/dL (2.5-4.9)
== END 2022-04-08 21:01 | disposition home or self-care (01) | DRG 165 ==
LOC: 6WST 21:16 → 3WST 03-29 17:21 → CVICU 03-30 11:32 → 3WST 04-05 16:20
PROVIDERS: ADMIT Internal Medicine; ATTEND Internal Medicine
PROC: 4A023N7 Measurement of Cardiac Sampling and Pressure, Left Heart, Percutaneous Approach (ICD-10-PCS; principal; 2022-03-29)
PROC: B211YZZ Fluoroscopy of Multiple Coronary Arteries using Other Contrast (ICD-10-PCS; 2022-03-29)
PROC: 021009W Bypass Coronary Artery, One Artery from Aorta with Autologous Venous Tissue, Open Approach (ICD-10-PCS; 2022-03-30)
PROC: 02100Z9 Bypass Coronary Artery, One Artery from Left Internal Mammary, Open Approach (ICD-10-PCS; 2022-03-30)
PROC: 02100Z8 Bypass Coronary Artery, One Artery from Right Internal Mammary, Open Approach (ICD-10-PCS; 2022-03-30)
PROC: 5A1221Z Performance of Cardiac Output, Continuous (ICD-10-PCS; 2022-03-30)
PROC: 06BP4ZZ Excision of Right Saphenous Vein, Percutaneous Endoscopic Approach (ICD-10-PCS; 2022-03-30)
PROC: 5A09357 Assistance with Respiratory Ventilation, Less than 24 Consecutive Hours, Continuous Positive Airway Pressure (ICD-10-PCS; 2022-04-01)
DX: I21.4 Non-ST elevation (NSTEMI) myocardial infarction (principal); J96.01 Acute respiratory failure with hypoxia; N17.0 Acute kidney failure with tubular necrosis; I13.0 Hypertensive heart and chronic kidney disease with heart failure and stage 1 through stage 4 chronic kidney disease, or unspecified chronic kidney disease; I50.9 Heart failure, unspecified; E87.1 Hypo-osmolality and hyponatremia; E11.22 Type 2 diabetes mellitus with diabetic chronic kidney disease; D64.9 Anemia, unspecified; I25.10 Atherosclerotic heart disease of native coronary artery without angina pectoris; N18.2 Chronic kidney disease, stage 2 (mild); Z20.822 Contact with and (suspected) exposure to COVID-19; J81.1 Chronic pulmonary edema; M62.82 Rhabdomyolysis; D72.829 Elevated white blood cell count, unspecified; N28.9 Disorder of kidney and ureter, unspecified; E78.5 Hyperlipidemia, unspecified; R31.9 Hematuria, unspecified; E11.65 Type 2 diabetes mellitus with hyperglycemia; Z28.310 Unvaccinated for COVID-19; Z79.02 Long term (current) use of antithrombotics/antiplatelets; Z83.3 Family history of diabetes mellitus; Z88.8 Allergy status to other drugs, medicaments and biological substances; Z79.82 Long term (current) use of aspirin; Z79.899 Other long term (current) drug therapy
CPT/HCPCS: 36415; 36600; 71045; 71046; 76770; 80048; 80053; 81003; 82375; 82550; 82570; 82805; 82962; 83036; 83735; 84100; 84132; 84300; 84484; 85025; 85347; 86850; 86900; 86920; 87426; 93005; 93306; 93308; 93458; 93880; 93970; 94640; 94660; 97110; 97116; 97162; 97166; 97530; 97535; C1729; C1751; C1758; C1769; C1887; C1893; J0282; J0690; J1100; J1200; J1250; J1265; J1644; J1815; J1885; J1940; J2250; J2260; J2270; J2405; J2440; J2704; J2710; J3010; J3480; J3490; J7050; J7060; J7608; L3908; P9047; Q9967

== ENCOUNTER 2022-04-20 14:05 | Inpatient (IN) | payer MEDICAID ==
[~2022-04-20] VITALS: Ht 167.6 cm; Wt 81.4 kg
[2022-04-20 18:48] LABS: BASOPHILS % 1.3 % (0.0-2.0); EOSINOPHILS % 4.9 % (0.0-5.0); HEMATOCRIT. 35.8 % (42.0-52.0); HEMOGLOBIN. 11.6 g/dL (14.0-18.0); LYMPHOCYTES % 18.4 % (20.0-50.0); MEAN CORPUSCULAR HEMOGLOBIN 28.2 pg (28.0-32.0); MEAN CORPUSCULAR VOLUME 87.1 fL (80.0-94.0); MEAN PLATELET VOLUME 6.8 fl (7.4-10.4); MONOCYTES % 7.2 % (2.0-8.0); NEUTROPHILS % 68.2 % (40.0-76.0); PLATELET 479 x1000/uL (130-400); RED BLOOD CELL COUNT 4.11 mill/uL (4.7-6.1); RED CELL DISTRIBUTION WIDTH 14.3 % (11.6-14.6)
[2022-04-20 18:53] LABS: CHLORIDE 110 mEq/L (98-107)
[2022-04-20] MEDS ORDERED: PANTOPRAZOLE SODIUM 40 MG/VIAL IV NR (20:45)
[2022-04-20 21:14] LABS: CLARITY URINE CLEAR (CLEAR); COLOR URINE YELLOW (YELLOW); KETONES URINE NEGATIVE (NEGATIVE); LEUKOCYTE ESTERASE URINE NEGATIVE (NEGATIVE); NITRITE URINE NEGATIVE (NEGATIVE); OCCULT BLOOD URINE TRACE (NEGATIVE); PH URINE 5.5 (4.5-8.0); PROTEIN URINE TRACE (NEGATIVE); SPECIFIC GRAVITY URINE 1.043 (1.005-1.030); UROBILINOGEN URINE 0.2 E.U./dL (0.2-1.0)
[2022-04-21] VITALS (7 sets, daily range): BP systolic 99–139; BP diastolic 60–82
[2022-04-21] MEDS: SODIUM CHLORIDE 0.9% 1,000 ML IV SCH ×2 (03:45→13:17)
[2022-04-21] MEDS ORDERED: ACETAMINOPHEN 325MG TABLET PO PRN (03:45)
[2022-04-21] MEDS ORDERED: CLOP-31 PO (03:51)
[2022-04-21] MEDS ORDERED: ASPI-1497 PO (03:52)
[2022-04-21] MEDS ORDERED: CARV3.1242 PO (03:52)
[2022-04-21] MEDS ORDERED: AMI2 PO (03:53)
[2022-04-21] MEDS ORDERED: IOHEXOL-300 100 ML BOTTLE ONE (07:50)
[2022-04-21] MEDS: AMIODARONE HCL 200 MG TABLET PO SCH ×2 (08:50→16:52)
[2022-04-21] MEDS: CARVEDILOL 3.125 MG TABLET PO SCH ×2 (08:51→16:53)
[2022-04-21] MEDS ORDERED: ASPIRIN 81MG EC TABLET PO SCH ×2 (09:00)
[2022-04-21] MEDS ORDERED: CLOPIDOGREL 75MG TABLET PO SCH (09:00)
[2022-04-21 11:44] LABS: BASOPHILS % 1.2 % (0.0-2.0); EOSINOPHILS % 4.9 % (0.0-5.0); HEMATOCRIT. 32.8 % (42.0-52.0); HEMOGLOBIN. 10.9 g/dL (14.0-18.0); MEAN CORPUSCULAR HEMOGLOBIN 28.2 pg (28.0-32.0); MEAN CORPUSCULAR VOLUME 85.2 fL (80.0-94.0); MEAN PLATELET VOLUME 6.6 fl (7.4-10.4); MONOCYTES % 12.2 % (2.0-8.0); NEUTROPHILS % 63.7 % (40.0-76.0); PLATELET 466 x1000/uL (130-400); RED BLOOD CELL COUNT 3.85 mill/uL (4.7-6.1); RED CELL DISTRIBUTION WIDTH 14.4 % (11.6-14.6)
[2022-04-21 12:27] LABS: CHLORIDE 107 mEq/L (98-107)
[2022-04-21] MEDS: PANTOPRAZOLE SODIUM 40 MG/VIAL IV SCH ×2 (13:17→21:57)
[2022-04-21 17:55] LABS: TOTAL IRON BINDING CAPACITY 317 ug/dL (250-450)
[2022-04-21 18:11] LABS: FERRITIN 175 ng/mL (22-322)
[2022-04-21 18:20] LABS: VITAMIN B12 SERUM 1812 pg/mL (211-911)
[2022-04-21 18:21] LABS: FOLIC ACID (FOLATE) SERUM > 20.00 ng/mL (>5.38)
[2022-04-22] VITALS (7 sets, daily range): BP systolic 109–131; BP diastolic 44–81
[2022-04-22] MEDS: SODIUM CHLORIDE 0.9% 1,000 ML IV SCH ×2 (00:15→09:16)
[2022-04-22] MEDS ORDERED: SORBITOL 70% SOLN 30ML PO SCH (09:00)
[2022-04-22] MEDS: PANTOPRAZOLE SODIUM 40 MG/VIAL IV SCH (09:11)
[2022-04-22] MEDS: AMIODARONE HCL 200 MG TABLET PO SCH ×2 (09:12→17:57)
[2022-04-22] MEDS: CARVEDILOL 3.125 MG TABLET PO SCH ×2 (09:12→17:57)
[2022-04-22 13:20] LABS: BASOPHILS % 1.5 % (0.0-2.0); EOSINOPHILS % 6.6 % (0.0-5.0); HEMATOCRIT. 34.3 % (42.0-52.0); HEMOGLOBIN. 11.2 g/dL (14.0-18.0); MEAN CORPUSCULAR HEMOGLOBIN 28.1 pg (28.0-32.0); MEAN CORPUSCULAR VOLUME 85.7 fL (80.0-94.0); MEAN PLATELET VOLUME 6.7 fl (7.4-10.4); MONOCYTES % 7.3 % (2.0-8.0); NEUTROPHILS % 64.6 % (40.0-76.0); PLATELET 428 x1000/uL (130-400); RED CELL DISTRIBUTION WIDTH 14.4 % (11.6-14.6)
[2022-04-24] MEDS ORDERED: FERROUS SULFATE 325MG TABLET PO SCH (09:00)
[2022-04-24] MEDS ORDERED: ASCORBIC ACID 250 MG TABLET PO SCH (09:00)
== END 2022-04-22 21:11 | disposition home or self-care (01) | DRG 254 ==
LOC: ER 14:05 → 7WST 22:53 → ENRESERV 23:52
PROVIDERS: ADMIT Internal Medicine; ATTEND Internal Medicine
DX: K92.1 Melena (principal); I50.43 Acute on chronic combined systolic (congestive) and diastolic (congestive) heart failure; I11.0 Hypertensive heart disease with heart failure; D50.9 Iron deficiency anemia, unspecified; I25.10 Atherosclerotic heart disease of native coronary artery without angina pectoris; I25.2 Old myocardial infarction; Z95.1 Presence of aortocoronary bypass graft; Z88.8 Allergy status to other drugs, medicaments and biological substances; Z79.82 Long term (current) use of aspirin; Z79.899 Other long term (current) drug therapy
CPT/HCPCS: 36415; 74177; 80053; 81003; 82270; 82607; 82728; 82746; 83540; 83550; 85025; 93005; 99291; C9113; J7030; Q9967